=== PATIENT | male | born 1980 | race American Indian/Alaskan Native ===

== ENCOUNTER 2017-07-01 20:50 | Emergency (ER) | payer SELFPAY ==
[2017-07-01] MEDS ORDERED: TORADOL IM ONE (21:48)
[2017-07-01] MEDS ORDERED: ZOFRAN ODT PO ONE (21:48)
--- NOTE | 2017-07-01 22:52 | Cat Scan Report ---
FINAL REPORT PROCEDURE: CT HEAD/BRAIN WO CON TECHNIQUE: Computerized tomography of the head was performed without contrast material. HISTORY: headache COMPARISON: No prior studies are available for comparison. FINDINGS: Skull and scalp: Normal. Paranasal sinuses: Normal. Ventricles and subarachnoid spaces: Normal. Cerebrum: No evidence of hemorrhage, acute infarction or mass . Cerebellum and brainstem: No evidence of hemorrhage, acute infarction or mass. Vasculature: Normal. Comments: None. IMPRESSION: Normal Examination
[2017-07-01] MEDS ORDERED: FIORICET PO ONE (23:08)
--- NOTE | 2017-07-01 23:08 | Emergency Department Report ---
ED Headache HPI - General Chief Complaint: Headache Stated Complaint: MIGRAINE Time Seen by Provider: 07/01/17 23:07 Source: patient, family Exam Limitations: no limitations - History of Present Illness Initial Comments: This is a 37 y.o. male that presents with headache for 2 weeks. Patient reports pain is worse with light. It is intermittent pain that last for 2-6 hours. Most of the time pain is in the front on the left side and sometimes it is in the back of head. The pain is 10/10. He went to the fire department today and they took his blood pressure and it was 210/108 at 2020 and they suggest he come directly to the ER. He is taking aleve with no improvement of symptoms. Denies aura, visual changes, chest pain, N/V, and chest pain. Timing/Duration: 4-6 hours, episodic Quality: severe, pressure, throbbing Head Injury Location: frontal, occipital Recent Head Trauma: no recent headache/trauma Modifying Factors: improves with: exposure to light Associated Symptoms: denies: confusion, fatigue, facial pain, fever/chills, flushing, loss of consciousness, nausea/vomiting, nasal congestion, nasal drainage, numbness in legs/feet, rash, seizures, sinus infection, stiff neck, vision changes, weakness Allergies/Adverse Reactions: Allergies No Known Allergies Allergy (Unverified 07/01/17 21:30) Home Medications: Ambulatory Orders Hydrochlorothiazide 12.5 mg PO DAILY #30 tablet 07/02/17 amLODIPine [Norvasc] 5 mg PO DAILY #30 tab 07/02/17 ED Review of Systems ROS: Stated complaint: MIGRAINE Other details as noted in HPI Constitutional: denies: chills, fever Eyes: denies: eye pain, eye discharge, vision change ENT: denies: ear pain, throat pain Respiratory: denies: cough, shortness of breath, wheezing Cardiovascular: denies: chest pain, palpitations Gastrointestinal: denies: abdominal pain, nausea, diarrhea Neurological: headache. denies: weakness, numbness, paresthesias ED Past Medical Hx - Past Medical History Previous Medical History?: Yes Additional medical history: Heart murmur. - Social History Smoking Status: Never Smoker Substance Use Type: None - Medications Home Medications: Home Medications Medication Instructions Recorded Confirmed Last Taken Type Hydrochlorothiazide 12.5 mg PO DAILY #30 tablet 07/02/17 Unknown Rx amLODIPine [Norvasc] 5 mg PO DAILY #30 tab 07/02/17 Unknown Rx ED Physical Exam - General Limitations: No Limitations General appearance: alert, in no apparent distress - Eye Eye exam: Present: normal appearance, PERRL, EOMI. Absent: conjunctival injection Pupils: Present: normal accommodation - ENT ENT exam: Present: normal exam, mucous membranes moist - Neck Neck exam: Present: normal inspection, full ROM. Absent: lymphadenopathy - Respiratory Respiratory exam: Present: normal lung sounds bilaterally. Absent: respiratory distress - Cardiovascular Cardiovascular Exam: Present: regular rate, normal rhythm. Absent: systolic murmur, diastolic murmur, rubs, gallop - GI/Abdominal GI/Abdominal exam: Present: soft, normal bowel sounds - Neurological Exam Neurological exam: Present: alert, oriented X3, normal gait - Psychiatric Psychiatric exam: Present: normal affect, normal mood - Skin Skin exam: Present: warm, dry, intact, normal color. Absent: rash ED Course Vital Signs 07/01/17 21:25 Temperature 98.5 F Pulse Rate 62 Respiratory 18 Rate Blood Pressure 157/97 O2 Sat by Pulse 96 Oximetry ED Medical Decision Making - Radiology Data Radiology results: report reviewed CT of Head: normal examination. - Medical Decision Making This is a 37 y.o. male that presents with intermittent headache for 2 weeks. No history of migraines. Went to the fire department today at 2020 and they took his blood pressure was 210/108. It was 157/97 on arrival to ER. Patient is stable and was examined by me. CT of head obtained and dictated by radiologist. Patient notified of results of normal exam. Signs of distress noted, migraine aggravated by light. Given toradol, zofran, fioricet, benadryl, and reglan in ER. Follow up with PCP for management of hypertension. Start HCTZ and amlodipine. Discussed plan with patient and agreed with plan. No further questions noted by the patient. Discharged home in stable condition. Follow up with [facility] in 24-72 hours. Critical care attestation.: If time is entered above; I have spent that time in minutes in the direct care of this critically ill patient, excluding procedure time. ED Disposition Clinical Impression: Elevated blood pressure reading with diagnosis of hypertension Migraine Qualifiers: Migraine type: without aura Status migrainosus presence: with status migrainosus Intractability: not intractable Qualified Code(s): G43.001 - Migraine without aura, not intractable, with status migrainosus Disposition: DC- TO HOME OR SELFCARE Is pt being admited?: No Does the pt Need Aspirin: No Condition: Stable Instructions: Hypertension (ED) Additional Instructions: Take amlodipine and hydrochlorothiazide as prescribed to control blood pressure daily. Return to ER if visual change, chest pain, and dizziness. Take medication at start of headache. Minimize caffeine intake. Eat at scheduled times or 3 meals a day with snacks. Follow up with [facility] in 24-72 hours. Prescriptions: amLODIPine [Norvasc] 5 mg PO DAILY #30 tab Hydrochlorothiazide 12.5 mg PO DAILY #30 tablet Referrals: [facility] [Outside] - 3-5 Days [facility] [Outside] - 3-5 Days Forms: Work/School Release Form(ED) Time of Disposition: 03:40 Print Language: GEORGIAN
[2017-07-02] MEDS ORDERED: REGLAN IV ONE (01:46)
[2017-07-02] MEDS ORDERED: BENADRYL IV ONE (01:46)
[2017-07-02] MEDS ORDERED: ZOFRAN ODT PO ONE (02:31)
[2017-07-02 04:08] VITALS: BP 129/76
== END 2017-07-02 03:50 | disposition home or self-care (01) ==
LOC: ED 20:50
DX: G43.001 Migraine without aura, not intractable, with status migrainosus (principal); R03.0 Elevated blood-pressure reading, without diagnosis of hypertension
CPT/HCPCS: 70450; 96372; 96374; 96375; 99284; J1200; J1885; J2765; Q0162